=== PATIENT | female | born 1955 | race Caucasian/White ===

== ENCOUNTER 2017-08-08 09:15 | Emergency (ER) | payer BC ==
[~2017-08-08] VITALS: Ht 157.5 cm; Wt 78.0 kg
[2017-08-08 09:20] VITALS: BP 123/72; PULSE 78; RESP 16; TEMP 98; O2SAT 96
[2017-08-08] MEDS ORDERED: ACETAMINOPHEN/HYDROcodone 325 MG/5 MG TAB PO ONE (09:45)
[2017-08-08] MEDS ORDERED: ONDANSETRON ODT 4 MG TAB PO ONE (09:45)
--- NOTE | 2017-08-08 09:52 | PD ---
HPI Chief Complaint: Injury Time Seen by Provider: 09:40 Travel History International Travel<30 days: No Contact w/Intl Traveler<30days: No Traveled to known affect area: No History of Present Illness HPI 62 year old female presents to the emergency department for evaluation of left wrist injury that occurred just prior to arrival. Patient states she tripped and fell and tried to catch herself with her left arm. She reports left forearm , left wrist, left hand pain since the fall. She rates the pain 10/10 exacerbated with movement. She denies any head injury or LOC. No neck pain or back pain. No chest pain or abdominal pain. No vomiting or diarrhea. She states she has no chronic medical problems and takes no prescribed medications. Moderate severity. [facility] Past Medical History Medical History: Denies Significant Hx Past Surgical History Surgical History: No Previous Surgery Social History Alcohol Use: No Tobacco Use: No Substance Use: No Allergies-Medications (Allergen,Severity, Reaction): Coded Allergies: No Known Allergies (Unverified , 08/08/17) Reported Meds & Prescriptions Reported Meds & Active Scripts Active No Active Prescriptions or Reported Medications Review of Systems Except as stated in HPI: all other systems reviewed are Neg Physical Exam Narrative GENERAL: Well-nourished, well-developed female patient, afebrile. SKIN: Focused skin assessment warm/dry. No lacerations or abrasions. Patient has swelling and ecchymosis to left wrist and hand. HEAD: Normocephalic. Atraumatic. EYES: No scleral icterus. No injection or drainage. NECK: Supple, trachea midline. No JVD or lymphadenopathy. CARDIOVASCULAR: Regular rate and rhythm without murmurs, gallops, or rubs. Left radial pulse 2+. RESPIRATORY: Breath sounds equal bilaterally. No accessory muscle use. GASTROINTESTINAL: Abdomen soft, non-tender, nondistended. MUSCULOSKELETAL: No cyanosis, or edema. Patient has tenderness to palpation over left forearm, left wrist and left hand. BACK: Nontender without obvious deformity. No CVA tenderness. Data Data Last Documented VS Vital Signs Date Time Temp Pulse Resp B/P (MAP) Pulse Ox O2 Delivery O2 Flow Rate FiO2 08/08/17 09:20 98.0 78 16 123/72 (89) 96 Orders Orders Wrist, Complete ([id number]) (08/08/17 ) Forearm (2vws) (08/08/17 ) Hand, Complete ([id number]) (08/08/17 ) Acetamin-Hydrocod 325-5 Mg ([place] 5-325 (08/08/17 09:45) Ondansetron Odt (Zofran Odt) (08/08/17 09:45) Splint Or Brace Apply/Monitor (08/08/17 10:38) [employer] Request For Service (08/08/17 10:39) Radiology Film Requests (08/08/17 ) [facility] Medical Decision Making Medical Screen Exam Complete: Yes Emergency Medical Condition: Yes Medical Record Reviewed: Yes Interpretation(s) Last Impressions Wrist X-Ray 08/08/17 0000 Signed Impressions: CONCLUSION: Distal radial and ulnar fractures as described above. Radius/Ulna X-Ray 08/08/17 0000 Signed Impressions: CONCLUSION: Distal radial and ulnar fractures. Hand X-Ray 08/08/17 0000 Signed Impressions: CONCLUSION: Distal radial and ulnar fractures. Differential Diagnosis fracture vs. dislocation vs. sprain Narrative Course 62 year old female presents to the emergency department for evaluation of left arm injury that occurred just prior to arrival. X-ray of the left wrist, forearm, hand are ordered and pending. Patient appears to be in significant pain upon examination. Patient is given [place] 5/325 mg PO and Zofran 4 mg ODT for pain. X-ray of the left forearm shows distal radial and ulnar fractures. X-ray of the left wrist shows distal ulnar and radial fractures. X-ray of the left hand shows distal ulnar and radial fractures. I discussed the x-ray results with our orthopedist on-call, Dr. Elizabeth. He would like the patient to be placed in a sugar tong splint and gentle pressure applied to radius during application of splint. He would like to follow-up with the patient in the office on Sunday morning at 745. I discussed with the patient states she is from out of town will follow-up with orthopedist at home. Patient will be discharged short-term prescription for [place] for pain. The patient was discharged in stable condition with instructions, including return instructions and follow up instructions. Diagnosis Primary Impression: Wrist fracture, closed Qualified Codes: S62.102A - Fracture of unspecified carpal bone, left wrist, initial encounter for closed fracture Referrals: Orthopedist call for appointment Patient Instructions: General Instructions, Wrist Fracture in Adults (ED) Additional Instructions: Wear splint. Follow-up with an orthopedist. Take [place] as directed as needed for pain. Cautioned this can make you drowsy so do not drive after taking. Return to the emergency department for any acute worsening of symptoms. Med/Other Pt SpecificInfo: Prescription(s) given Scripts Hydrocodone-Acetaminophen (R[place]) 5 Mg-325 Mg Tab 1 TAB PO Q6H Y for PAIN, #12 TAB 0 Refills Prov: Janeen Moreno 08/08/17 Disposition: 01 DISCHARGE HOME Condition: Stable Janeen Moreno Aug 08, 2017 09:52
--- NOTE | 2017-08-08 10:10 | RADRPT ---
EXAM DATE: 08/08/2017 10:05 AM EDT AGE/SEX: 62 years / Female INDICATIONS: Left wrist pain post fall. CLINICAL DATA: This is the patient's initial encounter. Patient reports that signs and symptoms have been present for 1 day and indicates a pain score of 10/10. MEDICAL/SURGICAL HISTORY: . Prior fracture to left wrist. None. COMPARISON: No prior exams available for comparison. FINDINGS: There is fracturing of the distal radius. This appears comminuted. This extends into the radiocarpal joint. There is some mild dorsal angulation at the fracture site. The radiocarpal joint is aligned. T here is fracture at the base of the ulnar styloid. CONCLUSION: Distal radial and ulnar fractures as described above. Electronically signed by: Nadeem Sheets MD 08/08/2017 10:09 AM EDT
--- NOTE | 2017-08-08 10:11 | RADRPT ---
EXAM DATE: 08/08/2017 10:04 AM EDT AGE/SEX: 62 years / Female INDICATIONS: Left distal forearm pain post fall. CLINICAL DATA: This is the patient's initial encounter. Patient reports that signs and symptoms have been present for 1 day and indicates a pain score of 10/10. MEDICAL/SURGICAL HISTORY: . Left wrist fracture. None. COMPARISON: No prior exams available for comparison. FINDINGS: There is fracturing of the distal radius and the ulnar styloid. These are more fully described in the left wrist series. The remaining aspects of the ulna and radius appear intact. The elbow is normally aligned. CONCLUSION: Distal radial and ulnar fractures. Electronically signed by: Nadeem Sheets MD 08/08/2017 10:09 AM EDT
--- NOTE | 2017-08-08 10:12 | RADRPT ---
EXAM DATE: 08/08/2017 10:04 AM EDT AGE/SEX: 62 years / Female INDICATIONS: Left proximal hand pain post fall this morning. CLINICAL DATA: This is the patient's initial encounter. Patient reports that signs and symptoms have been present for 1 day and indicates a pain score of 8/10. MEDICAL/SURGICAL HISTORY: . Prior left wrist fracture. None. COMPARISON: No prior exams available for comparison. FINDINGS: There is a comminuted fracture at the distal radius with extension to the radiocarpal joint. There is dorsal angulation of the distal fragment. There is a fracture at the base of the ulnar styloid. The remaining bones in the hand appear intact. The radiocarpal joint is aligned. CONCLUSION: Distal radial and ulnar fractures. Electronically signed by: Nadeem Sheets MD 08/08/2017 10:10 AM EDT
[2017-08-08] MEDS ORDERED: NORC5TAB PO (10:42)
== END 2017-08-08 11:22 | disposition home or self-care (01) ==
LOC: PHEFT 09:15
DX: S52.592A Other fractures of lower end of left radius, initial encounter for closed fracture (principal); S52.612A Displaced fracture of left ulna styloid process, initial encounter for closed fracture; W01.0XXA Fall on same level from slipping, tripping and stumbling without subsequent striking against object, initial encounter
CPT/HCPCS: 29125; 73090; 73110; 73130